=== PATIENT | female | born 1970 | race Caucasian/White ===

== ENCOUNTER 2019-12-24 22:36 | Emergency (ER) | payer MEDICAID ==
[~2019-12-24] VITALS: Ht 170.2 cm; Wt 104.3 kg
[~2019-12-24 22:36] MED LIST: NORCO10T PO; SERT-153 PO
[2019-12-24] MEDS ORDERED: normal saline 1000ML IV soln IVB ONE ×2 (23:05)
[2019-12-24] MEDS ORDERED: metoclopramide 5 mg/ml inj IV ONE (23:05)
[2019-12-24] MEDS ORDERED: diphenhydrAMINE 50 mg/ml inj IV ONE (23:05)
[2019-12-24 23:08] LABS: BASOPHILS # (AUTO) 0.1 X10'3 (0-0.2); BASOPHILS % (AUTO) 0.4 % (0-1); EOSINOPHILS # (AUTO) 0.1 X10'3 (0-0.9); EOSINOPHILS % (AUTO) 0.8 % (0-6); HEMATOCRIT 43.3 % (35.0-45.0); HEMOGLOBIN 14.6 g/dl (12.0-16.0); LYMPHOCYTES # (AUTO) 1.4 X10'3 (1.1-4.8); MEAN CORPUSCULAR HGB CONC 33.7 g/dL (33.0-36.5); MEAN CORPUSCULAR VOLUME 86.1 FL (78-98); MEAN PLATELET VOLUME 8.2 FL (7.4-10.4); MONOCYTES # (AUTO) 0.6 X10'3 (0-0.9); MONOCYTES % (AUTO) 4.9 % (2-12); NEUTROPHILS # (AUTO) 10.4 X10'3 (1.8-7.7); NEUTROPHILS % (AUTO) 82.9 % (42-75); PLATELET COUNT 301 X10'3 (140-440); RED BLOOD COUNT 5.03 X10'6 (4.20-5.60); RED CELL DISTRIBUTION WIDTH 13.4 % (11.5-14.5); WHITE BLOOD COUNT 12.6 X10'3 (4.5-11.0)
[2019-12-24 23:23] LABS: ALANINE AMINOTRANSFERASE 32 U/L (12-78); ALBUMIN/GLOBULIN RATIO 1.1 (1.1-1.5); ALKALINE PHOSPHATASE 110 IU/L (46-116); ANION GAP 10 (8-16); ASPARTATE AMINO TRANSFERASE 22 U/L (10-37); BILIRUBIN,TOTAL 0.5 MG/DL (0.1-1.0); BLOOD UREA NITROGEN 11 MG/DL (7-18); BUN/CREATININE RATIO 12.5 (6.6-38.0); CALCIUM 9.1 MG/DL (8.5-10.1); CHLORIDE 106 MMOL/L (99-107); CREATININE 0.88 MG/DL (0.40-0.90); GLUCOSE 117 MG/DL (70-104); LIPASE 212 U/L (73-393); POTASSIUM 3.8 MMOL/L (3.5-5.1); SODIUM 140 MMOL/L (135-145); TOTAL CARBON DIOXIDE 23.6 MMOL/L (24-32); TOTAL PROTEIN 7.8 G/DL (6.4-8.2); eGFR 68 ML/MIN
--- NOTE | 2019-12-24 23:48 | NUR ---
Pt tells me now that she used cocaine this AM.
[2019-12-25] MEDS ORDERED: ketorolac trometh. 30mg/ml inj. IV ONE
[2019-12-25] MEDS ORDERED: mag hydrox/Alum hydrox/simeth 30ml oral suspension PO ONE (00:50)
[2019-12-25] MEDS ORDERED: LIDOcaine Viscous 15ml cup MM ONE (00:50)
[2019-12-25] MEDS ORDERED: OMEP40CA13 PO (00:51)
[2019-12-25] MEDS ORDERED: ONDA4TAB12 PO (00:51)
[2019-12-25 01:12] VITALS: BP 117/73
== END 2019-12-25 01:19 | disposition home or self-care (01) ==
LOC: ER 22:37
DX: R10.11 Right upper quadrant pain (principal); R11.2 Nausea with vomiting, unspecified; R19.7 Diarrhea, unspecified; F32.9 Major depressive disorder, single episode, unspecified; Z90.49 Acquired absence of other specified parts of digestive tract; Z90.710 Acquired absence of both cervix and uterus; Z98.890 Other specified postprocedural states; Z88.0 Allergy status to penicillin; Z79.899 Other long term (current) drug therapy
CPT/HCPCS: 36415; 80053; 83690; 85025; 93005; 96361; 96374; 96375; 99284; J1200; J1885; J2765; J7030; 99285

== ENCOUNTER 2020-07-28 15:04 | Emergency (ER) | payer MEDICAID ==
[~2020-07-28] VITALS: Ht 167.6 cm; Wt 94.5 kg
[~2020-07-28 15:04] MED LIST changes: +ONDA4TAB12 PO
[2020-07-28 15:28] VITALS: BP 119/83
[2020-07-28] MEDS ORDERED: HYDR-4383 PO (17:14)
== END 2020-07-28 17:21 | disposition home or self-care (01) ==
LOC: ER 15:04
DX: S62.345A Nondisplaced fracture of base of fourth metacarpal bone, left hand, initial encounter for closed fracture (principal); G43.909 Migraine, unspecified, not intractable, without status migrainosus; Z90.49 Acquired absence of other specified parts of digestive tract; Z90.710 Acquired absence of both cervix and uterus; Z88.0 Allergy status to penicillin; W18.39XA Other fall on same level, initial encounter; Z91.81 History of falling; Y93.89 Activity, other specified; Y92.89 Other specified places as the place of occurrence of the external cause; Y99.8 Other external cause status
CPT/HCPCS: 29125; 73110; 73130; 99284

== ENCOUNTER 2021-02-22 14:21 | Emergency (ER) | payer MEDICAID ==
[~2021-02-22] VITALS: Ht 167.6 cm; Wt 95.5 kg
[~2021-02-22 14:21] MED LIST changes: +HYDR-4383 PO
[2021-02-22] MEDS ORDERED: ondansetron/PF 4mg/2ml inj IV ONE (15:15)
[2021-02-22] MEDS ORDERED: normal saline 1000ML IV soln IVB ONE (15:15)
[2021-02-22 15:33] LABS: BASOPHILS % (AUTO) 0.5 % (0-1); EOSINOPHILS # (AUTO) 0.1 X10'3 (0-0.9); EOSINOPHILS % (AUTO) 1.1 % (0-6); HEMATOCRIT 44.1 % (35.0-45.0); HEMOGLOBIN 14.9 g/dl (12.0-16.0); LYMPHOCYTES # (AUTO) 1.4 X10'3 (1.1-4.8); LYMPHOCYTES % (AUTO) 18.2 % (21-51); MEAN CORPUSCULAR HEMOGLOBIN 30.3 PG (27.0-31.0); MEAN CORPUSCULAR HGB CONC 33.9 g/dL (33.0-36.5); MEAN CORPUSCULAR VOLUME 89.3 FL (78-98); MEAN PLATELET VOLUME 8.2 FL (7.4-10.4); MONOCYTES # (AUTO) 0.5 X10'3 (0-0.9); MONOCYTES % (AUTO) 6.3 % (2-12); NEUTROPHILS # (AUTO) 5.6 X10'3 (1.8-7.7); NEUTROPHILS % (AUTO) 73.9 % (42-75); PLATELET COUNT 269 X10'3 (140-440); RED BLOOD COUNT 4.93 X10'6 (4.20-5.60); RED CELL DISTRIBUTION WIDTH 13.3 % (11.5-14.5); WHITE BLOOD COUNT 7.6 X10'3 (4.5-11.0)
[2021-02-22 15:48] LABS: ALANINE AMINOTRANSFERASE 28 U/L (12-78); ALBUMIN 3.8 G/DL (3.4-5.0); ALKALINE PHOSPHATASE 94 IU/L (46-116); ANION GAP 9 (8-16); ASPARTATE AMINO TRANSFERASE 15 U/L (10-37); BILIRUBIN,TOTAL 0.6 MG/DL (0.1-1.0); BLOOD UREA NITROGEN 11 MG/DL (7-18); BUN/CREATININE RATIO 14.9 (6.6-38.0); CALCIUM 8.3 MG/DL (8.5-10.1); CHLORIDE 102 MMOL/L (99-107); CREATININE 0.74 MG/DL (0.40-0.90); GLUCOSE 93 MG/DL (70-104); LIPASE 89 U/L (73-393); POTASSIUM 4.2 MMOL/L (3.5-5.1); SODIUM 140 MMOL/L (135-145); TOTAL CARBON DIOXIDE 28.8 MMOL/L (24-32); TOTAL PROTEIN 7.5 G/DL (6.4-8.2); eGFR 83 ML/MIN
[2021-02-22] MEDS ORDERED: ONDA4TAB6 PO (18:13)
[2021-02-22] MEDS: morphine 4 MG/ML inj SYRINge IV PRN ×2 (18:41→20:46)
--- NOTE | 2021-02-22 19:23 | NUR ---
2ND LITER NS INFUSING W/O
[2021-02-22] MEDS ORDERED: ketorolac trometh. 30mg/ml inj. IV ONE (19:50)
--- NOTE | 2021-02-22 20:34 | NUR ---
pt c/o upper abd pain 6-01/26 after receiving toradol, Dr Nguyễn aware, nausea has resolved
[2021-02-22] MEDS ORDERED: HYDROcodone/acetaminophen 10/325mg tab PO ONE (21:00)
[2021-02-22 21:08] LABS: CLARITY,URINE SLIGHTLY CLOUDY (Clear); COLOR,URINE YELLOW (Yellow); GLUCOSE, URINE NEGATIVE (Neg); KETONES,URINE 40 mg/dl (Neg); LEUKOCYTE ESTERASE ,URINE NEGATIVE (Neg); NITRITES, URINE NEGATIVE (Neg); OCCULT BLOOD,URINE NEGATIVE (Neg); PROTEIN,URINE NEGATIVE (Neg)
[2021-02-22 21:11] LABS: UA COLLECTION TYPE CLN CATCH MIDSTREAM
[2021-02-22 21:15] LABS: BACTERIA,URINE 1+ /HPF (Neg); MUCUS STRANDS MODERATE /LPF (Neg); RBC,URINE NONE SEEN /HPF (0-2); SQUAMOUS EPITHELIAL CELL,UR MANY /LPF (FEW); WBC,URINE 0-4 /HPF (0-4)
[2021-02-22 21:16] LABS: AMORPHOUS PHOSPHATES 2+
[2021-02-22 21:22] VITALS: BP 140/78
== END 2021-02-22 21:25 | disposition home or self-care (01) ==
LOC: ER 14:22
DX: R11.2 Nausea with vomiting, unspecified (principal); E86.0 Dehydration; R19.7 Diarrhea, unspecified; F32.9 Major depressive disorder, single episode, unspecified; G43.909 Migraine, unspecified, not intractable, without status migrainosus; Z88.0 Allergy status to penicillin; Z79.899 Other long term (current) drug therapy; Z90.49 Acquired absence of other specified parts of digestive tract
CPT/HCPCS: 36415; 80053; 81001; 83690; 85025; 96361; 96374; 96375; 99284; J1885; J2270; J2405; J7030

== ENCOUNTER 2021-02-24 09:41 | Emergency (ER) | payer MEDICAID ==
[~2021-02-24] VITALS: Ht 167.6 cm; Wt 93.3 kg
[~2021-02-24 09:41] MED LIST changes: +ONDA4TAB6 PO
[2021-02-24 10:53] LABS: BASOPHILS # (AUTO) 0.1 X10'3 (0-0.2); BASOPHILS % (AUTO) 0.8 % (0-1); EOSINOPHILS # (AUTO) 0.2 X10'3 (0-0.9); EOSINOPHILS % (AUTO) 3.3 % (0-6); HEMATOCRIT 41.5 % (35.0-45.0); HEMOGLOBIN 14.3 g/dl (12.0-16.0); LYMPHOCYTES # (AUTO) 1.5 X10'3 (1.1-4.8); LYMPHOCYTES % (AUTO) 20.8 % (21-51); MEAN CORPUSCULAR HEMOGLOBIN 30.1 PG (27.0-31.0); MEAN CORPUSCULAR HGB CONC 34.5 g/dL (33.0-36.5); MEAN CORPUSCULAR VOLUME 87.2 FL (78-98); MONOCYTES # (AUTO) 0.5 X10'3 (0-0.9); MONOCYTES % (AUTO) 6.7 % (2-12); NEUTROPHILS # (AUTO) 4.9 X10'3 (1.8-7.7); NEUTROPHILS % (AUTO) 68.4 % (42-75); PLATELET COUNT 257 X10'3 (140-440); RED BLOOD COUNT 4.76 X10'6 (4.20-5.60); RED CELL DISTRIBUTION WIDTH 13.2 % (11.5-14.5); WHITE BLOOD COUNT 7.2 X10'3 (4.5-11.0)
[2021-02-24 11:01] LABS: ALANINE AMINOTRANSFERASE 31 U/L (12-78); ALBUMIN 3.6 G/DL (3.4-5.0); ALKALINE PHOSPHATASE 89 IU/L (46-116); AMYLASE 37 U/L (25-115); ANION GAP 10 (8-16); ASPARTATE AMINO TRANSFERASE 25 U/L (10-37); BILIRUBIN,TOTAL 0.5 MG/DL (0.1-1.0); BLOOD UREA NITROGEN 12 MG/DL (7-18); BUN/CREATININE RATIO 17.4 (6.6-38.0); CALCIUM 8.6 MG/DL (8.5-10.1); CHLORIDE 107 MMOL/L (99-107); CREATININE 0.69 MG/DL (0.40-0.90); GLUCOSE 98 MG/DL (70-104); LIPASE 130 U/L (73-393); SODIUM 144 MMOL/L (135-145); TOTAL CARBON DIOXIDE 27.4 MMOL/L (24-32); TOTAL PROTEIN 7.2 G/DL (6.4-8.2); eGFR 90 ML/MIN
[2021-02-24 11:30] LABS: URINE HCG NEGATIVE (NEG)
[2021-02-24 11:33] LABS: CLARITY,URINE SLIGHTLY CLOUDY (Clear); COLOR,URINE YELLOW (Yellow); GLUCOSE, URINE NEGATIVE (Neg); KETONES,URINE NEGATIVE (Neg); LEUKOCYTE ESTERASE ,URINE NEGATIVE (Neg); NITRITES, URINE NEGATIVE (Neg); OCCULT BLOOD,URINE NEGATIVE (Neg); PROTEIN,URINE NEGATIVE (Neg); UA COLLECTION TYPE CLN CATCH MIDSTREAM
[2021-02-24 11:43] LABS: SQUAMOUS EPITHELIAL CELL,UR MANY /LPF (FEW)
[2021-02-24 11:45] LABS: BACTERIA,URINE 1+ /HPF (Neg); RBC,URINE 0-2 /HPF (0-2); WBC,URINE 0-4 /HPF (0-4)
[2021-02-24] MEDS ORDERED: sucralfate 1gm/10ml UD suspension PO STA (11:49)
[2021-02-24] MEDS ORDERED: ondansetron/PF 4mg/2ml inj IV ONE (11:50)
[2021-02-24] MEDS ORDERED: LIDOcaine Viscous 15ml cup MM ONE (11:50)
[2021-02-24] MEDS ORDERED: mag hydrox/Alum hydrox/simeth 30ml oral suspension PO ONE (11:50)
[2021-02-24] MEDS ORDERED: famotidine/PF 10 mg/ml inj IV ONE (11:50)
[2021-02-24] MEDS ORDERED: normal saline 1000ML IV soln IVB ONE (11:50)
--- NOTE | 2021-02-24 12:34 | NUR ---
PT UPDATED WITH PLAN OF CARE AND IS AWAITING CT.
[2021-02-24 13:26] VITALS: BP 136/76
[2021-02-24] MEDS ORDERED: PANT-47 PO (14:17)
[2021-02-24] MEDS ORDERED: ONDA4TAB6 PO (14:17)
== END 2021-02-24 14:39 | disposition home or self-care (01) ==
LOC: ER 09:41
DX: R10.13 Epigastric pain (principal); R11.2 Nausea with vomiting, unspecified; G43.909 Migraine, unspecified, not intractable, without status migrainosus; Z90.49 Acquired absence of other specified parts of digestive tract; Z90.710 Acquired absence of both cervix and uterus; Z88.0 Allergy status to penicillin; Z79.899 Other long term (current) drug therapy
CPT/HCPCS: 36415; 74176; 76700; 80053; 81001; 81025; 82150; 83690; 85025; 96361; 96374; 96375; 99285; J2405; J3490; J7030

== ENCOUNTER 2022-03-27 08:40 | Emergency (ER) | payer OTHER, MEDICAID ==
[~2022-03-27] VITALS: Ht 167.6 cm; Wt 95.5 kg
[~2022-03-27 08:40] MED LIST changes: +PANT-47 PO
[2022-03-27] MEDS ORDERED: ketorolac tromethamine 15mg/ml inj. IM ONE (08:50)
[2022-03-27] MEDS ORDERED: morphine 4 MG/ML inj SYRINge IM ONE (08:50)
--- NOTE | 2022-03-27 09:08 | NUR ---
Pt left for CT on RA.
[2022-03-27] MEDS ORDERED: ORPH100T2 PO (09:53)
[2022-03-27] MEDS ORDERED: HYDR-3972 PO (09:53)
[2022-03-27 10:18] VITALS: BP 112/83
== END 2022-03-27 10:20 | disposition home or self-care (01) ==
LOC: ER 08:40
DX: S13.9XXA Sprain of joints and ligaments of unspecified parts of neck, initial encounter (principal); G44.209 Tension-type headache, unspecified, not intractable; Z88.0 Allergy status to penicillin; Z98.890 Other specified postprocedural states; Z90.710 Acquired absence of both cervix and uterus; V89.2XXA Person injured in unspecified motor-vehicle accident, traffic, initial encounter; Y93.89 Activity, other specified; Y92.89 Other specified places as the place of occurrence of the external cause; Y99.8 Other external cause status
CPT/HCPCS: 70450; 72125; 96372; 99284; J1885; J2270

== ENCOUNTER 2023-03-27 13:47 | Emergency (ER) | payer MEDICAID ==
[~2023-03-27] VITALS: Ht 167.6 cm; Wt 120.0 kg
[~2023-03-27 13:47] MED LIST changes: +ORPH100T4 PO
[2023-03-27 14:26] LABS: BASOPHILS % (AUTO) 0.5 % (0-1); EOSINOPHILS # (AUTO) 0.2 X10'3 (0-0.9); EOSINOPHILS % (AUTO) 2.7 % (0-6); HEMATOCRIT 41.9 % (35.0-45.0); LYMPHOCYTES # (AUTO) 1.4 X10'3 (1.1-4.8); MEAN CORPUSCULAR HEMOGLOBIN 29.7 PG (27.0-31.0); MEAN CORPUSCULAR HGB CONC 33.5 g/dL (33.0-36.5); MEAN CORPUSCULAR VOLUME 88.7 FL (78-98); MEAN PLATELET VOLUME 8.3 FL (7.4-10.4); MONOCYTES # (AUTO) 0.6 X10'3 (0-0.9); MONOCYTES % (AUTO) 6.7 % (2-12); NEUTROPHILS # (AUTO) 6.2 X10'3 (1.8-7.7); NEUTROPHILS % (AUTO) 73.1 % (42-75); PLATELET COUNT 234 X10'3 (140-440); RED BLOOD COUNT 4.72 X10'6 (4.20-5.60); RED CELL DISTRIBUTION WIDTH 13.3 % (11.5-14.5); WHITE BLOOD COUNT 8.5 X10'3 (4.5-11.0)
[2023-03-27 14:37] LABS: ALANINE AMINOTRANSFERASE 24 U/L (12-78); ALBUMIN 3.4 G/DL (3.4-5.0); ALBUMIN/GLOBULIN RATIO 0.9 (1.1-1.5); ALKALINE PHOSPHATASE 96 IU/L (46-116); ANION GAP 8 (8-16); ASPARTATE AMINO TRANSFERASE 22 U/L (10-37); BILIRUBIN,TOTAL 0.5 MG/DL (0.1-1.0); BLOOD UREA NITROGEN 14 MG/DL (7-18); BUN/CREATININE RATIO 20.9 (10.0-20.0); CALCIUM 8.9 MG/DL (8.5-10.1); CHLORIDE 103 MMOL/L (99-107); CREATININE 0.67 MG/DL (0.40-0.90); GLUCOSE 88 MG/DL (70-104); POTASSIUM 4.1 MMOL/L (3.5-5.1); SODIUM 136 MMOL/L (135-145); TOTAL CARBON DIOXIDE 25.4 MMOL/L (24-32); eCRCL 91 ML/MIN; eGFR > 90 ML/MIN
[2023-03-27 14:43] LABS: PRO BRAIN NATRIURETIC PEPTIDE 99 PG/ML (0-125)
[2023-03-27 14:44] LABS: PRO BRAIN NATRIURETIC PEPTIDE 97 PG/ML (0-125)
[2023-03-27] MEDS ORDERED: ketorolac trometh. 30mg/ml inj. IV ONE (14:55)
[2023-03-27] MEDS ORDERED: normal saline 1000ml 1,000 ML IV ONE (14:55)
[2023-03-27] MEDS ORDERED: ondansetron/PF 4mg/2ml inj IV ONE (14:55)
[2023-03-27 15:16] LABS: D-DIMER 0.29 MG/L FEU (0-0.50)
[2023-03-27 15:30] VITALS: BP 121/72; PULSE 73; O2SAT 95
[2023-03-27 17:24] VITALS: RESP 12; TEMP 97.4
== END 2023-03-27 17:28 | disposition home or self-care (01) ==
LOC: ER 13:47
DX: R07.89 Other chest pain (principal); R09.1 Pleurisy; Z88.0 Allergy status to penicillin; Z79.899 Other long term (current) drug therapy; Z90.49 Acquired absence of other specified parts of digestive tract; Z90.710 Acquired absence of both cervix and uterus
CPT/HCPCS: 36415; 71045; 80053; 83880; 84145; 84484; 85025; 85379; 93005; 96361; 96374; 96375; 99285; J1885; J2405; J7030

== ENCOUNTER 2023-11-19 00:11 | Emergency (ER) | payer MEDICAID ==
[~2023-11-19] VITALS: Ht 167.6 cm; Wt 105.7 kg
[2023-11-19 00:21] VITALS: TEMP 98.3
[2023-11-19] MEDS: ondansetron/PF 4mg/2ml inj IV ONE (01:23)
[2023-11-19] MEDS: morphine 4 MG/ML inj SYRINge IV ONE (01:24)
[2023-11-19 01:26] LABS: EOSINOPHILS # (AUTO) 0.3 X10'3 (0-0.9)
[2023-11-19 01:29] LABS: BASOPHILS % (AUTO) 0.5 % (0-1); EOSINOPHILS % (AUTO) 2.5 % (0-6); HEMATOCRIT 42.8 % (35.0-45.0); HEMOGLOBIN 14.5 g/dl (12.0-16.0); LYMPHOCYTES # (AUTO) 2.1 X10'3 (1.1-4.8); MEAN CORPUSCULAR HGB CONC 33.9 g/dL (33.0-36.5); MEAN CORPUSCULAR VOLUME 88.7 FL (78-98); MEAN PLATELET VOLUME 8.3 FL (7.4-10.4); MONOCYTES # (AUTO) 0.8 X10'3 (0-0.9); MONOCYTES % (AUTO) 7.2 % (2-12); NEUTROPHILS # (AUTO) 7.5 X10'3 (1.8-7.7); NEUTROPHILS % (AUTO) 69.8 % (42-75); PLATELET COUNT 224 X10'3 (140-440); RED BLOOD COUNT 4.82 X10'6 (4.20-5.60); RED CELL DISTRIBUTION WIDTH 13.6 % (11.5-14.5); WHITE BLOOD COUNT 10.7 X10'3 (4.5-11.0)
[2023-11-19 01:40] LABS: ALBUMIN 3.4 G/DL (3.4-5.0); ANION GAP 12 (8-16); BLOOD UREA NITROGEN 16 MG/DL (7-18); CALCIUM 8.6 MG/DL (8.5-10.1); CHLORIDE 104 MMOL/L (99-107); GLUCOSE 105 MG/DL (70-104); POTASSIUM 3.5 MMOL/L (3.5-5.1); PRO BRAIN NATRIURETIC PEPTIDE 31 PG/ML (0-125); SODIUM 140 MMOL/L (135-145); TOTAL CARBON DIOXIDE 23.9 MMOL/L (24-32); eCRCL 76 ML/MIN; eGFR 75 ML/MIN
[2023-11-19] MEDS ORDERED: iohexol 350MG/ML 100ml bottle IV ONE (02:01)
[2023-11-19] MEDS: fentaNYL/PF 50MCG/1 ML 2ML syringe IV ONE (02:39)
[2023-11-19] MEDS ORDERED: ketorolac trometh. 30mg/ml inj. IV ONE (03:30)
[2023-11-19] MEDS: ketorolac tromethamine 15mg/ml inj. IV ONE (03:58)
[2023-11-19] MEDS ORDERED: HYDR-3965 PO (04:52)
[2023-11-19 05:00] VITALS: BP 115/43; PULSE 74; RESP 15; O2SAT 94
== END 2023-11-19 05:01 | disposition home or self-care (01) ==
LOC: ER 00:12
DX: R09.1 Pleurisy (principal); G43.909 Migraine, unspecified, not intractable, without status migrainosus; R06.00 Dyspnea, unspecified; F32.A Depression, unspecified; Z90.710 Acquired absence of both cervix and uterus; Z98.890 Other specified postprocedural states; Z88.0 Allergy status to penicillin; Z79.899 Other long term (current) drug therapy; Z79.2 Long term (current) use of antibiotics
CPT/HCPCS: 36415; 71045; 71275; 74177; 80048; 83735; 83880; 84145; 84484; 85025; 93005; 96374; 96375; 99285; J1885; J2270; J2405; J3010; J3490; Q9967

== ENCOUNTER 2024-06-19 07:43 | Emergency (ER) | payer MEDICAID ==
[~2024-06-19] VITALS: Ht 167.6 cm; Wt 96.7 kg
[~2024-06-19 07:43] MED LIST changes: +ONDA-243 PO; -ONDA4TAB12 PO
[2024-06-19 07:48] VITALS: TEMP 97.5
[2024-06-19 08:20] LABS: BASOPHILS % (AUTO) 0.4 % (0-1); EOSINOPHILS # (AUTO) 0.1 X10'3 (0-0.9); EOSINOPHILS % (AUTO) 1.4 % (0-6); HEMATOCRIT 45.9 % (35.0-45.0); HEMOGLOBIN 15.3 g/dl (12.0-16.0); LYMPHOCYTES # (AUTO) 0.7 X10'3 (1.1-4.8); LYMPHOCYTES % (AUTO) 9.5 % (21-51); MEAN CORPUSCULAR HEMOGLOBIN 29.7 PG (27.0-31.0); MEAN CORPUSCULAR HGB CONC 33.5 g/dL (33.0-36.5); MEAN CORPUSCULAR VOLUME 88.6 FL (78-98); MONOCYTES # (AUTO) 0.6 X10'3 (0-0.9); MONOCYTES % (AUTO) 7.9 % (2-12); NEUTROPHILS # (AUTO) 5.8 X10'3 (1.8-7.7); NEUTROPHILS % (AUTO) 80.8 % (42-75); PLATELET COUNT 214 X10'3 (140-440); RED BLOOD COUNT 5.17 X10'6 (4.20-5.60); RED CELL DISTRIBUTION WIDTH 13.9 % (11.5-14.5); WHITE BLOOD COUNT 7.2 X10'3 (4.5-11.0)
[2024-06-19 08:39] LABS: ALANINE AMINOTRANSFERASE 21 U/L (12-78); ALBUMIN 3.4 G/DL (3.4-5.0); ALBUMIN/GLOBULIN RATIO 0.9 (1.1-1.5); ALKALINE PHOSPHATASE 93 IU/L (46-116); ANION GAP 13 (8-16); ASPARTATE AMINO TRANSFERASE 19 U/L (10-37); BILIRUBIN,TOTAL 0.6 MG/DL (0.1-1.0); BLOOD UREA NITROGEN 10 MG/DL (7-18); BUN/CREATININE RATIO 13.9 (10.0-20.0); CALCIUM 8.5 MG/DL (8.5-10.1); CHLORIDE 103 MMOL/L (99-107); CREATININE 0.72 MG/DL (0.40-0.90); GLUCOSE 99 MG/DL (70-104); LIPASE 37 U/L (16-77); SODIUM 139 MMOL/L (135-145); TOTAL CARBON DIOXIDE 23.3 MMOL/L (24-32); TOTAL PROTEIN 7.2 G/DL (6.4-8.2); eCRCL 84 ML/MIN; eGFR 84 ML/MIN
[2024-06-19] MEDS: normal saline 1000ml 1,000 ML IV ONE (09:19)
[2024-06-19] MEDS: ondansetron/PF 4mg/2ml inj IV ONE (09:19)
[2024-06-19] MEDS: HYDROmorphone inj. 0.5 MG/0.5 ML DISP.SYRIN IV ONE (09:32)
[2024-06-19] MEDS ORDERED: FAMO40TA73 PO (11:06)
[2024-06-19] MEDS: famotidine 20mg tablet PO ONE (11:25)
[2024-06-19] MEDS: HYDROcodone/acetaminophen 5mg/325mg tablet PO ONE (11:26)
[2024-06-19 11:37] VITALS: BP 129/75; PULSE 66; RESP 18; O2SAT 96
== END 2024-06-19 11:40 | disposition home or self-care (01) ==
LOC: ER 07:43
DX: R10.13 Epigastric pain (principal); R11.10 Vomiting, unspecified; Z88.0 Allergy status to penicillin; Z90.49 Acquired absence of other specified parts of digestive tract; Z90.710 Acquired absence of both cervix and uterus
CPT/HCPCS: 36415; 76700; 80053; 83690; 85025; 96361; 96374; 96375; 99285; J1171; J2405; J7030